=== PATIENT | male | born 1990 | race Caucasian/White ===

== ENCOUNTER 2019-05-07 11:58 | Day surgery (SDC) | payer OTHER ==
[~2019-05-07] VITALS: Ht 182.9 cm; Wt 86.7 kg
[2019-05-07] MEDS ORDERED: LACTATED RINGERS 1,000 ML IV SCH (12:22)
[2019-05-07 12:28] VITALS: BP 123/84
[2019-05-07] MEDS ORDERED: LIDOCAINE-MPF 1%, 2ML INFIL ONE (12:30)
[2019-05-07] MEDS ORDERED: PLEASE ENTER HEIGHT AND WEIGHT MC SCH (12:30)
[2019-05-07] MEDS ORDERED: PLEASE ENTER ALLERGIES MC SCH (12:30)
[2019-05-07] MEDS ORDERED: NONE PER PT (12:43)
[2019-05-07] MEDS ORDERED: BUPIVACAINE/PF 0.5% ONE (13:49)
[2019-05-07] MEDS ORDERED: EPINEPHRINE 1 MG/ML, 1ML ONE (13:49)
[2019-05-07] MEDS ORDERED: MIDAZOLAM 1 MG/ML, 2ML ONE (13:50)
[2019-05-07] MEDS ORDERED: FENTANYL PF 250 MCG/5ML ONE (13:51)
[2019-05-07] MEDS ORDERED: PROMETHAZINE 25 MG SUPP PR PRN (14:30)
[2019-05-07] MEDS ORDERED: MEPERIDINE/PF 25MG/ML,1ML IVPush PRN (14:30)
[2019-05-07] MEDS ORDERED: HYDROmorphone 2 MG/ML, 1ML IVPush PRN (14:30)
[2019-05-07] MEDS ORDERED: PROMETHAZINE 25 MG/ML, 1ML IV PRN (14:30)
[2019-05-07] MEDS ORDERED: ACETAMINOPHEN 325 MG TABLET PO PRN (14:30)
[2019-05-07] MEDS ORDERED: OXYcodone 5 MG/5 ML ORAL.SOL UDC PO PRN (14:30)
[2019-05-07] MEDS ORDERED: ONDANSETRON ODT 8 MG PO PRN (14:30)
[2019-05-07] MEDS ORDERED: FENTANYL PF 100 MCG/2ML IV PRN (14:30)
[2019-05-07] MEDS ORDERED: ONDANSETRON 2MG/ML, 2ML IV PRN (14:30)
[2019-05-07] MEDS ORDERED: LORazepam 2 MG/ML, 1ML IVPush PRN (14:30)
[2019-05-07] MEDS ORDERED: BACITRACIN 50,000 UNIT ONE (14:32)
[2019-05-07] MEDS ORDERED: ONDANSETRON 2MG/ML, 2ML ONE (15:14)
[2019-05-07] MEDS ORDERED: CEFAZOLIN 1,000 MG ONE (15:14)
[2019-05-07] MEDS ORDERED: PROPOFOL 10 MG/ML, 20ML ONE (15:14)
[2019-05-07] MEDS ORDERED: DEXAMETHASONE 4 MG/ML, 1ML ONE (15:14)
== END 2019-05-07 16:40 | disposition home or self-care (01) ==
LOC: OUT 11:58
PROVIDERS: ATTEND Orthopaedic Surgery
DX: S64.22XA Injury of radial nerve at wrist and hand level of left arm, initial encounter (principal); F17.200 Nicotine dependence, unspecified, uncomplicated; W25.XXXA Contact with sharp glass, initial encounter; Y93.89 Activity, other specified; Y92.89 Other specified places as the place of occurrence of the external cause; Y99.8 Other external cause status
CPT/HCPCS: 64912; 88302; J0171; J0690; J1100; J2250; J2405; J2704; J3010; J7120; C1762